=== PATIENT | male | born 1970 | race Caucasian/White ===

== ENCOUNTER 2017-01-16 16:02 | Emergency (ER) | payer MEDICAID ==
[~2017-01-16] VITALS: Ht 180.3 cm; Wt 71.5 kg
[2017-01-16 16:05] VITALS: BP 125/78
== END 2017-01-16 18:32 | disposition home or self-care (01) ==
LOC: ED 17:28
DX: S62.324A Displaced fracture of shaft of fourth metacarpal bone, right hand, initial encounter for closed fracture (principal); X58.XXXA Exposure to other specified factors, initial encounter; Y93.89 Activity, other specified; Y99.8 Other external cause status; Y92.89 Other specified places as the place of occurrence of the external cause
CPT/HCPCS: 29125; 99284

== ENCOUNTER 2017-08-17 23:04 | Emergency (ER) | payer MEDICAID ==
[~2017-08-17] VITALS: Ht 177.8 cm; Wt 79.6 kg
[2017-08-17 23:05] VITALS: BP 131/84
[2017-08-17] MEDS ORDERED: FLUORESCEIN OPHTHALMIC 1 MG STRIP ONE (23:16)
[2017-08-17] MEDS ORDERED: PROPARACAINE OPHTH 0.5%, 15ML ONE (23:17)
== END 2017-08-17 23:37 | disposition home or self-care (01) ==
LOC: ED 23:15
DX: H10.023 Other mucopurulent conjunctivitis, bilateral (principal); F17.200 Nicotine dependence, unspecified, uncomplicated
CPT/HCPCS: 99283